=== PATIENT | female | born 1970 | race Caucasian/White ===

== ENCOUNTER 2021-08-06 18:03 | Outpatient (REF) | payer MEDICARE, MEDICAID, SELFPAY ==
[2021-08-07 16:39] LABS: *AMPHETAMINES SCREEN URINE Negative (Negative); *BARBITURATES SCREEN URINE Negative (Negative); *BENZODIAZEPINES SCREEN URINE Negative (Negative); Cannabinoids THC Negative (Negative); Cocaine Screen,Urine Negative (Negative); METHADONE URINE SCREEN Positive (Negative); OPIATES URINE SCREEN Negative (Negative)
[2021-08-07 16:40] LABS: Tricyclic Antidepressants Negative (Negative)
== END 2021-08-06 18:04 | disposition home or self-care (01) ==
LOC: LBN 18:03
PROVIDERS: PCP Nurse Practitioner Family; Visit Provider Internal Medicine Sleep Medicine
DX: Z76.89 Persons encountering health services in other specified circumstances (principal); Z51.81 Encounter for therapeutic drug level monitoring
CPT/HCPCS: 80307